=== PATIENT | male | born 1985 | race African-American/Black ===

== ENCOUNTER 2016-06-25 08:25 | Emergency (ER) | payer MEDICAID, OTHER ==
[~2016-06-25] VITALS: Ht 175.3 cm; Wt 90.0 kg
[~2016-06-25 08:25] MED LIST: DM/P295L11; DM/P295L17; GUAI600T
[2016-06-25] MEDS ORDERED: KETOROLAC 60MG/2ML VIAL IM ONE (09:15)
[2016-06-25 10:40] VITALS: BP 144/79
== END 2016-06-25 10:41 | disposition home or self-care (01) ==
LOC: ER 10:01
DX: R07.89 Other chest pain (principal); Z79.899 Other long term (current) drug therapy
CPT/HCPCS: 71010; 93005; 96372; 99284; J1885

== ENCOUNTER 2019-02-01 11:21 | Emergency (ER) | payer MEDICAID ==
[~2019-02-01] VITALS: Ht 182.9 cm; Wt 82.0 kg
[~2019-02-01 11:21] MED LIST changes: -GUAI600T; +GUAI600T26
[2019-02-01 12:30] VITALS: BP 144/84
[2019-02-01] MEDS ORDERED: ACETAMINOPHEN 325MG TABLET PO ONE (12:30)
[2019-02-01] MEDS ORDERED: SODIUM CHLORIDE 0.9% 1,000 ML IV ONE (12:30)
[2019-02-01] MEDS ORDERED: ONDANSETRON HCL 4MG/2ML INJ IV ONE (12:30)
[2019-02-01] MEDS ORDERED: DICYCLOMINE HCL 10MG/ML 2ML AMP IM ONE (12:30)
[2019-02-01 13:27] LABS: BASOPHILS % 0.4 % (0.0-2.0); EOSINOPHILS % 0.1 % (0.0-5.0); HEMATOCRIT. 41.2 % (42.0-52.0); HEMOGLOBIN. 13.8 g/dL (14.0-18.0); LYMPHOCYTES % 15.5 % (20.0-50.0); MEAN CORPUSCULAR VOLUME 92.2 fL (80.0-94.0); MEAN PLATELET VOLUME 8.8 fl (7.4-10.4); MONOCYTES % 9.9 % (2.0-8.0); NEUTROPHILS % 74.1 % (40.0-76.0); PLATELET 124 x1000/uL (130-400); RED BLOOD CELL COUNT 4.47 mill/uL (4.7-6.1); RED CELL DISTRIBUTION WIDTH 12.2 % (11.6-14.6)
[2019-02-01 13:28] LABS: CHLORIDE 103 mEq/L (98-107)
[2019-02-01 13:30] LABS: INR 1.1; PROTHROMBIN TIME 10.8 sec (9.6-11.0)
[2019-02-01 16:29] LABS: CLARITY URINE CLEAR (CLEAR); COLOR URINE YELLOW (YELLOW); KETONES URINE NEGATIVE (NEGATIVE); LEUKOCYTE ESTERASE URINE NEGATIVE (NEGATIVE); NITRITE URINE NEGATIVE (NEGATIVE); OCCULT BLOOD URINE NEGATIVE (NEGATIVE); PROTEIN URINE NEGATIVE (NEGATIVE); SPECIFIC GRAVITY URINE 1.013 (1.005-1.030)
[2019-02-01] MEDS ORDERED: FAMOTIDINE 20MG/2ML VIAL IV STA (16:34)
[2019-02-01] MEDS ORDERED: MAGNESIUM/ALUMINUM HYDROXIDE/SIMETHICONE 30ML UDC PO STA (16:34)
[2019-02-01] MEDS ORDERED: VISCOUS LIDOCAINE 2% 15 ML UDC PO STA (16:34)
== END 2019-02-01 17:56 | disposition home or self-care (01) ==
LOC: ER 11:21
DX: J06.9 Acute upper respiratory infection, unspecified (principal); M79.10 Myalgia, unspecified site; R11.2 Nausea with vomiting, unspecified; R10.9 Unspecified abdominal pain; D64.9 Anemia, unspecified; E87.5 Hyperkalemia; R74.0 Nonspecific elevation of levels of transaminase and lactic acid dehydrogenase [LDH]
CPT/HCPCS: 36415; 76705; 80053; 81003; 83690; 85025; 85610; 87804; 96361; 96372; 96374; 96375; 99284; J0500; J2405; J3490; J7030; Z7610